=== PATIENT | male | born 1975 | race Caucasian/White ===

== ENCOUNTER 2017-11-25 02:38 | Emergency (ER) | payer BC ==
[2017-11-25 02:54] VITALS: BP 135/87; PULSE 73; RESP 20; TEMP 98.2; O2SAT 98
--- NOTE | 2017-11-25 03:08 | C.PDOC ---
History Of Present Illness 42 year old male presents to the ED c/o feeling very anxious. Patient states he has had similar episode week ago, patient states he had some blood works done which was normal. However patient states he is feeling chest heaviness and is worried. Patient denies fever, chills, CP, SOB, weakness, numbness. Time Seen by Provider: 11/25/17 03:08 Chief Complaint (Nursing): Anxiety History Per: Patient History/Exam Limitations: no limitations Onset/Duration Of Symptoms: Days Current Symptoms Are (Timing): Still Present Suicide/Self Injury Attempted (Context): None Associated Symptoms: denies: Depression, Suicidal Thoughts, Suicidal Plan Involuntary Hold By: None Recent travel outside of the [place]: No Additional History Per: Patient Past Medical History Reviewed: Historical Data, Nursing Documentation, Vital Signs Vital Signs: Last Vital Signs Temp 98.2 F 11/25/17 02:49 Pulse 73 11/25/17 02:49 Resp 20 11/25/17 02:49 BP 135/87 11/25/17 02:49 Pulse Ox 98 11/25/17 03:19 - Medical History PMH: No Chronic Diseases Surgical History: No Surg Hx Family History: States: Unknown Family Hx - Social History Hx Alcohol Use: Yes Hx Substance Use: No - Immunization History Hx Tetanus Toxoid Vaccination: No Hx Influenza Vaccination: No Hx Pneumococcal Vaccination: No Review Of Systems Constitutional: Negative for: Fever, Chills Cardiovascular: Negative for: Chest Pain Respiratory: Negative for: Cough, Shortness of Breath Gastrointestinal: Negative for: Nausea, Vomiting, Abdominal Pain Skin: Negative for: Rash Neurological: Negative for: Weakness, Numbness Psych: Positive for: Anxiety. Negative for: Depression, Suicidal ideation Physical Exam - Physical Exam Appears: Non-toxic, No Acute Distress Skin: Warm, Dry Head: Normacephalic Eye(s): bilateral: Normal Inspection Neck: Supple Chest: Symmetrical Cardiovascular: Rhythm Regular Respiratory: No Rales, No Rhonchi, No Wheezing Gastrointestinal/Abdominal: Soft, No Tenderness, No Guarding, No Rebound Extremity: No Tenderness, No Swelling Extremity: Bilateral: Atraumatic, Normal Color And Temperature, Normal ROM Neurological/Psych: Oriented x3, Normal Speech Gait: Steady ED Course And Treatment O2 Sat by Pulse Oximetry: 98 (ON RA) Pulse Ox Interpretation: Normal Progress Note: Plan: - EKG. - Labs. - CXR. - Aspirin 325 mg PO. - UA Disposition Counseled Patient/Family Regarding: Studies Performed, Diagnosis - Disposition Disposition: ELOPEMENT - ER ONLY Disposition Time: 03:08 Condition: FAIR Forms: [facility] ([place]) - Clinical Impression Clinical Impression: Anxiety - Scribe Statement The provider has reviewed the documentation as recorded by the Scribe Yuval Tavares All medical record entries made by the Scribe were at my direction and personally dictated by me. I have reviewed the chart and agree that the record accurately reflects my personal performance of the history, physical exam, medical decision making, and the department course for this patient. I have also personally directed, reviewed, and agree with the discharge instructions and disposition.
[2017-11-25] MEDS ORDERED: Aspirin 325 mg EC Tablets PO STA (03:12)
== END 2017-11-25 03:08 | disposition left against medical advice (07) ==
LOC: C.ER 02:38
DX: F41.9 Anxiety disorder, unspecified (principal)